=== PATIENT | female | born 1950 | race African-American/Black ===

== ENCOUNTER 2022-06-23 11:29 | Inpatient (IN) | payer MEDICARE, OTHER ==
[~2022-06-23] VITALS: Ht 172.7 cm; Wt 103.9 kg
[2022-06-23] MEDS ORDERED: SODIUM CHLORIDE 0.9% 1,000 ML IV ONE (12:15)
[2022-06-23 15:20] LABS: CHLORIDE 106 mEq/L (98-107)
[2022-06-23 15:23] LABS: BASOPHILS % 0.2 % (0.0-2.0); EOSINOPHILS % 0.3 % (0.0-5.0); HEMATOCRIT. 39.5 % (36.0-48.0); HEMOGLOBIN. 13.2 g/dL (12.0-16.0); INR 0.9; MEAN CORPUSCULAR VOLUME 89.9 fL (81.0-99.0); MEAN PLATELET VOLUME 9.1 fl (7.4-10.4); MONOCYTES % 2.3 % (2.0-8.0); NEUTROPHILS % 80.2 % (40.0-76.0); PLATELET 207 x1000/uL (130-400); PROTHROMBIN TIME 10.2 sec (9.6-11.0); RED BLOOD CELL COUNT 4.39 mill/uL (4.2-5.4); RED CELL DISTRIBUTION WIDTH 14.8 % (11.6-14.6)
[2022-06-23] MEDS ORDERED: ONDANSETRON HCL 4MG/2ML INJ IV PRN (17:30)
[2022-06-23] MEDS ORDERED: DOCUSATE SODIUM 100MG CAPSULE PO PRN (17:30)
[2022-06-23] MEDS ORDERED: ACETAMINOPHEN 325MG TABLET PO PRN (17:30)
[2022-06-23] MEDS ORDERED: CLONIDINE 0.1MG TABLET PO PRN (17:30)
[2022-06-23] MEDS ORDERED: IPRATROPIUM/ALBUTEROL 0.5-3(2.5)MG/3ML NEB HHN PRN (17:30)
[2022-06-24] MEDS: ASPIRIN 81MG TABLET PO SCH (18:48)
[2022-06-24] MEDS ORDERED: LEVETIRACETAM 500MG/5ML CUP PO SCH (21:00)
[2022-06-24 21:25] VITALS: BP 134/82
[2022-06-24] MEDS: LEVETIRACETAM 500MG/5ML CUP PO SCH (21:28)
[2022-06-24 21:30] VITALS: BP 134/82
[2022-06-25 08:00] VITALS: BP 106/67
[2022-06-25] MEDS: ASPIRIN 81MG TABLET PO SCH (09:33)
[2022-06-25] MEDS: ACETAMINOPHEN 325MG TABLET PO PRN ×2 (09:34→18:32)
[2022-06-25] MEDS: LEVETIRACETAM 500MG/5ML CUP PO SCH ×2 (09:41→21:31)
[2022-06-25] MEDS: LORAZEPAM 0.5MG TABLET PO PRN ×4 (09:41→22:51)
[2022-06-25 12:00] VITALS: BP 132/83
[2022-06-25 16:00] VITALS: BP 145/86
[2022-06-25 20:00] VITALS: BP 133/88
[2022-06-26] VITALS: BP 121/54
[2022-06-26 04:00] VITALS: BP 122/76
[2022-06-26 08:00] VITALS: BP 122/66
[2022-06-26] MEDS: ASPIRIN 81MG TABLET PO SCH (09:12)
[2022-06-26] MEDS: LEVETIRACETAM 500MG/5ML CUP PO SCH ×2 (09:12→20:28)
[2022-06-26] MEDS: ACETAMINOPHEN 325MG TABLET PO PRN (10:38)
[2022-06-26 12:00] VITALS: BP 112/61
[2022-06-26 16:00] VITALS: BP 133/73
[2022-06-26] MEDS: LORAZEPAM 0.5MG TABLET PO PRN (17:13)
[2022-06-26] MEDS: HALOPERIDOL LACTATE 5MG/ML VIAL IM PRN (18:54)
[2022-06-26 20:46] VITALS: BP 127/76
[2022-06-27] VITALS: BP 110/57
[2022-06-27] MEDS: ACETAMINOPHEN 325MG TABLET PO PRN (06:34)
[2022-06-27] MEDS: LORAZEPAM 0.5MG TABLET PO PRN (06:35)
[2022-06-27 06:40] VITALS: BP 107/69
[2022-06-27 08:00] VITALS: BP 99/57
[2022-06-27] MEDS: LEVETIRACETAM 500MG/5ML CUP PO SCH (09:54)
[2022-06-27] MEDS: ASPIRIN 81MG TABLET PO SCH (09:55)
[2022-06-27] MEDS: HALOPERIDOL LACTATE 5MG/ML VIAL IM PRN (09:55)
[2022-06-27 10:52] VITALS: BP 99/51
[2022-06-27 12:00] VITALS: BP 101/89
== END 2022-06-27 11:50 | disposition home or self-care (01) | DRG 641 ==
LOC: ER 12:27 → EDBEDREQ 16:00 → EDBEDREQTM 16:00 → MICUSO 23:32 → 6EST 06-24 22:19
PROVIDERS: ADMIT Internal Medicine; ATTEND Internal Medicine
DX: R62.7 Adult failure to thrive (principal); F03.90 Unspecified dementia, unspecified severity, without behavioral disturbance, psychotic disturbance, mood disturbance, and anxiety; E11.9 Type 2 diabetes mellitus without complications; I10 Essential (primary) hypertension; Z88.8 Allergy status to other drugs, medicaments and biological substances; Z68.34 Body mass index [BMI] 34.0-34.9, adult; Z86.73 Personal history of transient ischemic attack (TIA), and cerebral infarction without residual deficits
CPT/HCPCS: 36415; 80053; 85025; 87426; 87804; 97162; 99285; C9803; J1630; J7030